=== PATIENT | male | born 1955 | race Caucasian/White ===

== ENCOUNTER → 2017-12-12 | Outpatient (CLI) | payer OTHER | LOC: CIMAGING 13:29 | PROVIDERS: ATTEND Neurological Surgery | DX: M25.78 Osteophyte, vertebrae (principal) | CPT/HCPCS: 72050-PO ==

== ENCOUNTER → 2019-01-09 | Outpatient (CLI) | payer BC | LOC: CIMAGING 13:44 → EDSTATUS 13:45 → CIMAGING 13:46 | PROVIDERS: ATTEND Neurological Surgery | DX: Z98.1 Arthrodesis status (principal); M50.321 Other cervical disc degeneration at C4-C5 level; M53.82 Other specified dorsopathies, cervical region | CPT/HCPCS: 72040-PO ==